=== PATIENT | male | born 1990 | race African-American/Black ===

== ENCOUNTER 2025-07-29 01:39 | Emergency (ER) | payer OTHER ==
[~2025-07-29] VITALS: Ht 180.3 cm; Wt 90.7 kg
[2025-07-29] MEDS ORDERED: AMOX-430 PO (03:55)
[2025-07-29] MEDS ORDERED: NEOM10DR11 LEFT EAR (03:55)
[2025-07-29 04:05] VITALS: BP 163/91; TEMP 98.1; O2SAT 96
== END 2025-07-29 04:05 | disposition home or self-care (01) ==
LOC: ER 01:50
DX: H92.03 Otalgia, bilateral (principal)

== ENCOUNTER 2025-07-29 08:10 | Emergency (ER) | payer OTHER ==
[~2025-07-29] VITALS: Ht 180.3 cm; Wt 85.7 kg
[~2025-07-29 08:10] MED LIST: AMOX-430 PO; NEOM10DR11 LEFT EAR
[2025-07-29 08:49] LABS: PLATELET COUNT (AUTO) 336 K/uL (150-450); RED BLOOD CELL COUNT(AUTO) 5.35 MIL/uL (4.5-6.0); RED CELL DISTRIBUTION WIDTH 13.5 % (11.5-15.0); WHITE BLOOD COUNT (AUTO) 5.5 K/uL (4.3-11.0)
[2025-07-29 08:56] LABS: CALCIUM, SERUM 8.7 mg/dL (8.5-10.1); CREATININE 1.1 mg/dL (0.6-1.3); SODIUM SERUM 132 mmol/L (136-145); UREA NITROGEN, BLOOD 9 mg/dL (7-18)
[2025-07-29 09:01] LABS: ASPARTATE AMINOTRANSFERASE 17 U/L (15-37); TOTAL PROTEIN, SERUM 7.9 g/dL (6.4-8.2)
[2025-07-29] MEDS ORDERED: POTASSIUM CHLORIDE 20 MEQ TAB.PRT.SR PO ONE (11:37)
[2025-07-29] MEDS: POTASSIUM CHLORIDE 20 MEQ TAB.PRT.SR PO ONE (12:01)
[2025-07-29 18:00] VITALS: BP 139/84; TEMP 98.5; O2SAT 99
== END 2025-07-29 18:01 | disposition home or self-care (01) ==
LOC: ER 08:10
DX: Z02.89 Encounter for other administrative examinations (principal); F32.A Depression, unspecified; R44.0 Auditory hallucinations; E87.6 Hypokalemia; F41.9 Anxiety disorder, unspecified; F19.10 Other psychoactive substance abuse, uncomplicated; F17.200 Nicotine dependence, unspecified, uncomplicated; Z59.00 Homelessness unspecified; Z20.822 Contact with and (suspected) exposure to COVID-19
CPT/HCPCS: 36415; 80048-TC; 80076-TC; 85025-TC